=== PATIENT | female | born 1970 | race Caucasian/White ===

== ENCOUNTER 2019-09-24 17:49 | Inpatient (IN) | payer OTHER, SELFPAY ==
[2019-09-24] VITALS (7 sets, daily range): BP systolic 134–163; BP diastolic 76–108; PULSE 90–110; RESP 14–18; TEMP 36–36.7; O2SAT 96–99; BMI 28.1
[2019-09-24 19:09] LABS: Basophils # 0.1 10^3/uL (0.0-0.1); Basophils % 0.4 %; Eosinophils % 0.1 %; Hematocrit 46.4 % (37.0-47.0); Hemoglobin 14.2 g/dL (11.5-15.3); Lymphocytes # 1.3 10^3/uL (0.8-4.8); Mean Corpuscular HGB Conc 30.6 g/dL (30.0-36.0); Mean Corpuscular Hemoglobin 28.7 pg (28.0-34.0); Mean Corpuscular Volume 93.7 fL (81-99); Mean Platelet Volume 10.9 fL (7.4-10.4); Monocytes # 0.5 10^3/uL (0.2-0.9); Monocytes % 3.3 %; Neutrophils # 12.7 10^3/uL (1.8-7.7); Neutrophils % 86.9 %; Nucleated Red Blood Cells % 0 %; Platelet Count 250 10^3/cmm (130-400); Red Blood Count 4.95 10^6/uL (4.1-5.3); Red Cell Distribution Width 12.8 % (12.1-15.1); White Blood Count 14.6 10^3/uL (4.0-10.0)
[2019-09-24 19:24] LABS: Anion Gap 22.4 (5-19); Blood Urea Nitrogen 8 mg/dL (6-20); Carbon Dioxide 19 mmol/L (22-29); Chloride 100 mmol/L (98-107); Potassium 4.4 mmol/L (3.5-5.1); Sodium 137 mmol/L (136-145)
[2019-09-24 19:25] LABS: Alanine Aminotransferase 25 U/L (0-33); Albumin Level 4.7 g/dL (3.5-5.2); Alkaline Phosphatase 101 IU/L (35-105); Calcium 9.9 mg/dL (8.5-10.5); Globulin 3.6 g/dL (1.3-4.6); Glomerular Filtration Rate 131.7 mL/min (90-130); Glucose 248 mg/dL (65-115); Lipase 38 U/L (13-60); Osmolality Calculated 288 mOsm/kg (285-295); Total Bilirubin 0.4 mg/dL (0.15-1.2); Total Protein 8.3 g/dL (6.6-8.7)
--- NOTE | 2019-09-24 19:25 | USR_ITS ---
PROCEDURE INFORMATION: Exam: US Abdomen Limited, Right Upper Quadrant Exam date and time: 09/24/2019 8:23 PM Age: 49 years old Clinical indication: Abdominal pain; Epigastric; Additional info: Ruq pain TECHNIQUE: Imaging protocol: Real-time ultrasound of the abdomen with image documentation. Examination was focused on the right upper quadrant. COMPARISON: No relevant prior studies available. FINDINGS: Liver: There is hepatomegaly the liver span is 17 cm. Diffuse increased hepatic echogenicity is seen consistent with steatosis. Gallbladder: There is a shadowing gallstone in the gallbladder neck measuring 3.3 cm There is no gallbladder wall thickening. there is pericholecystic fluid. The gallbladder wall measures 2 mm. Positive Magana sign Common bile duct: Normal. No stones. No dilation. Pancreas: Visualized pancreas is unremarkable. Right kidney: Normal. No mass. No hydronephrosis. 12.2 cm x 3.9 cm x 4.8 cm US/US gall bladder [id number] IMPRESSION: 1. Hepatic steatosis and hepatomegaly 2.Cholelithiasis , pericholecystic fluid, positive Magana 3. Otherwise negative examination
--- NOTE | 2019-09-24 19:26 | ED_ITS ---
Documented by User: COLLEEN Hardwick 09/24/19 19:28 HPI - Abdominal Pain General: Chief Complaint: Abdominal Pain Stated Complaint: R ABD PAIN Time Seen by Provider: 09/24/19 19:22 History of Present Illness: HPI narrative: Patient complains about right upper quadrant pain started probably about 10:00 today worse after lunch has not relented did have nausea with it. Patient is diabetic as his sugars been running high last couple weeks denies any other problems presently patient has had a HIDA scan that was negative from past MD elicited complaint: abdominal pain Onset (ago): hour(s) Pain Consistency: constant Location: RUQ Quality: stabbing and aching Radiation: none Migration to: other (Radiates to the back and right upper shoulder) Exacerbating factors: nothing Relieving factors: nothing Context: history of similar episodes Associated Symptoms: Reports nausea; Denies chills and fever(s) Review of Systems Const: Denies: fever(s), chills or body aches Eyes: Denies: change in vision or blurry vision ENMT: Denies: throat pain or nasal congestion Card: Denies: chest pain or dyspnea on exertion Resp: Denies: dyspnea, productive cough or non-productive cough GI: Reports: abdominal pain and nausea Musc: Denies: extremity pain Skin/Breast: Denies: rash Neuro: Denies: headache(s) Psych: Denies: anxiety or depression Ilya/Lymph: Denies: easy bruising PFSH ED PFSH: Social History Smoking and tobacco status: never smoked Physical Exam Const: COMMON NORMALS: no acute distress, average body habitus and patient oriented x3 HENMT: COMMON NORMALS: normocephalic HEAD & SCALP: normal to inspection and normocephalic FACE & SINUS: normal facial exam Eye: COMMON NORMALS: conjunctivae normal GENERAL EYE: appearance normal, both eyes and all related structures CONJUNCTIVA: Yes conjunctivae normal Neck/C-Spine: COMMON NORMALS: no JVD Chest: COMMONS NORMALS: normal inspection of the chest Resp: COMMON NORMALS: normal respiratory effort and clear to auscultation bilaterally AUSCULTATION: clear to auscultation bilaterally Cardio: COMMON NORMALS: no JVD, regular rate and regular rhythm RATE: regular rate RHYTHM: regular rhythm GI: INSPECTION: Yes normal to inspection AUSCULTATION: Yes Hypoactive bowel sounds present PALPATION: Yes Tenderness to palpation present (GI) Details: RUQ PERCUSSION: tympanic to percussion Extremity: COMMON NORMALS: normal to inspection and full ROM Neuro: COMMON NORMALS: patient oriented x3 Course Vital Signs: Vital signs: Vital Signs Temperature 96.8 F L 09/24/19 17:55 Pulse Rate 105 H 09/24/19 21:16 Respiratory Rate 14 09/24/19 21:16 Blood Pressure 155/104 09/24/19 21:16 Pulse Oximetry 96 09/24/19 21:16 MDM - Abdominal Pain Lab Data: Labs: Lab Results 09/24/19 09/24/19 09/24/19 Range/Units 18:58 18:58 20:47 WBC 14.6 H (4.0-10.0) 10^3/ uL RBC 4.95 (4.1-5.3) 10^6/u L Hgb 14.2 (11.5-15.3) g/dL Hct 46.4 (37.0-47.0) % MCV 93.7 (81-99) fL MCH 28.7 (28.0-34.0) pg MCHC 30.6 (30.0-36.0) g/dL RDW 12.8 (12.1-15.1) % Plt Count 250 (130-400) 10^3/c mm MPV 10.9 H (7.4-10.4) fL Neut % (Auto) 86.9 % Lymph % (Auto) 9.0 % Hinds % (Auto) 3.3 % Eos % (Auto) 0.1 % Baso % (Auto) 0.4 % Neut # (Auto) 12.7 H (1.8-7.7) 10^3/u L Lymph # (Auto) 1.3 (0.8-4.8) 10^3/u L Hinds # (Auto) 0.5 (0.2-0.9) 10^3/u L Eos # (Auto) 0.0 (0.0-0.8) 10^3/u L Baso # (Auto) 0.1 (0.0-0.1) 10^3/u L Nucleated RBC % (a uto) 0 % Nucleated RBCs # 0.0 /100WBC Sodium 137 (136-145) mmol/L Potassium 4.4 (3.5-5.1) mmol/L Chloride 100 (98-107) mmol/L Carbon Dioxide 19 L (22-29) mmol/L Anion Gap 22.4 H (5-19) BUN 8 (6-20) mg/dL Creatinine 0.5 (0.5-0.9) mg/dL GFR Calculation 131.7 H (90-130) mL/min Glucose 248 H (65-115) mg/dL Calculated Osmolal ity 288 (285-295) mOsm/k g Calcium 9.9 (8.5-10.5) mg/dL Total Bilirubin 0.4 (0.15-1.2) mg/dL AST 45 H (0-32) U/L ALT 25 (0-33) U/L Alkaline Phosphata se 101 (35-105) IU/L Total Protein 8.3 (6.6-8.7) g/dL Albumin 4.7 (3.5-5.2) g/dL Globulin 3.6 (1.3-4.6) g/dL Lipase 38 (13-60) U/L Urine Color Yellow (Yellow) Urine Appearance Clear (CLEAR) Urine pH 7 (5-7) Ur Specific Gravit y 1.015 (1.005-1.030) Urine Protein Neg (Negative) Urine Glucose (UA) 4+ H (Normal) Urine Ketones 2+ H (Negative) Urine Blood Neg (Negative) Urine Nitrate Negative (Negative) Urine Bilirubin Neg (NEGATIVE) Urine Urobilinogen Norm (Negative) mg/dL Ur Leukocyte Amber ase Negative (Negative) Discharge Plan Discharge Condition: Good Prescriptions: No Action Multiple Vitamins Tablet 1 tab PO DAILY RF: 0 atorvastatin 10 mg tablet 10 mg PO BEDTIME RF: 0 Euthyrox 75 mcg tablet 75 mcg PO DAILY RF: 0 iron 325 mg (65 mg iron) Tablet 325 mg PO DAILY RF: 0 metformin 1,000 mg tablet 1,000 mg PO DAILY RF: 0 glipizide 5 mg tablet 5 mg PO DAILY RF: 0 Calcium 500 + D 500 mg(1,250mg) -400 unit Tablet 1 tab PO DAILY RF: 0 Sign Out Sign Out Data: Patient Sign Out occurred on 09/24/19 at 21:31. Patient's care was discussed, and care was transferred from to Tianna Medrano. Coding Level of Care Code ED Supervisor Statement Clerks for Chg Fwd Exam Comprehensive Documented by User: Tianna Medrano 09/24/19 21:38 HPI - Abdominal Pain General: Chief Complaint: Abdominal Pain Stated Complaint: R ABD PAIN Time Seen by Provider: 09/24/19 19:22 PFS ED PFSH: Social History Smoking and tobacco status: never smoked Course Vital Signs: Vital signs: Vital Signs Temperature 96.8 F L 09/24/19 17:55 Pulse Rate 105 H 09/24/19 21:16 Respiratory Rate 14 09/24/19 21:16 Blood Pressure 155/104 09/24/19 21:16 Pulse Oximetry 96 09/24/19 21:16 MDM - Abdominal Pain MDM Narrative: Medical decision making narrative: The patient was seen and evaluated by me. I agree with [place]'s assessment and plan. Patient has signs of cholecystitis secondary to pericholecystic fluid, elevated white count, continued right upper quadrant abdominal pain despite IV pain medication. The case was reviewed with Drs. Fischer and Jose R and they agreed to admit and consult on the patient respectively. Lab Data: Labs: Lab Results 09/24/19 09/24/19 09/24/19 Range/Units 18:58 18:58 20:47 WBC 14.6 H (4.0-10.0) 10^3/ uL RBC 4.95 (4.1-5.3) 10^6/u L Hgb 14.2 (11.5-15.3) g/dL Hct 46.4 (37.0-47.0) % MCV 93.7 (81-99) fL MCH 28.7 (28.0-34.0) pg MCHC 30.6 (30.0-36.0) g/dL RDW 12.8 (12.1-15.1) % Plt Count 250 (130-400) 10^3/c mm MPV 10.9 H (7.4-10.4) fL Neut % (Auto) 86.9 % Lymph % (Auto) 9.0 % Hinds % (Auto) 3.3 % Eos % (Auto) 0.1 % Baso % (Auto) 0.4 % Neut # (Auto) 12.7 H (1.8-7.7) 10^3/u L Lymph # (Auto) 1.3 (0.8-4.8) 10^3/u L Hinds # (Auto) 0.5 (0.2-0.9) 10^3/u L Eos # (Auto) 0.0 (0.0-0.8) 10^3/u L Baso # (Auto) 0.1 (0.0-0.1) 10^3/u L Nucleated RBC % (a uto) 0 % Nucleated RBCs # 0.0 /100WBC Sodium 137 (136-145) mmol/L Potassium 4.4 (3.5-5.1) mmol/L Chloride 100 (98-107) mmol/L Carbon Dioxide 19 L (22-29) mmol/L Anion Gap 22.4 H (5-19) BUN 8 (6-20) mg/dL Creatinine 0.5 (0.5-0.9) mg/dL GFR Calculation 131.7 H (90-130) mL/min Glucose 248 H (65-115) mg/dL Calculated Osmolal ity 288 (285-295) mOsm/k g Calcium 9.9 (8.5-10.5) mg/dL Total Bilirubin 0.4 (0.15-1.2) mg/dL AST 45 H (0-32) U/L ALT 25 (0-33) U/L Alkaline Phosphata se 101 (35-105) IU/L Total Protein 8.3 (6.6-8.7) g/dL Albumin 4.7 (3.5-5.2) g/dL Globulin 3.6 (1.3-4.6) g/dL Lipase 38 (13-60) U/L Urine Color Yellow (Yellow) Urine Appearance Clear (CLEAR) Urine pH 7 (5-7) Ur Specific Gravit y 1.015 (1.005-1.030) Urine Protein Neg (Negative) Urine Glucose (UA) 4+ H (Normal) Urine Ketones 2+ H (Negative) Urine Blood Neg (Negative) Urine Nitrate Negative (Negative) Urine Bilirubin Neg (NEGATIVE) Urine Urobilinogen Norm (Negative) mg/dL Ur Leukocyte Amber ase Negative (Negative) Discharge Plan Discharge Condition: Good Prescriptions: No Action Multiple Vitamins Tablet 1 tab PO DAILY RF: 0 atorvastatin 10 mg tablet 10 mg PO BEDTIME RF: 0 Euthyrox 75 mcg tablet 75 mcg PO DAILY RF: 0 iron 325 mg (65 mg iron) Tablet 325 mg PO DAILY RF: 0 metformin 1,000 mg tablet 1,000 mg PO DAILY RF: 0 glipizide 5 mg tablet 5 mg PO DAILY RF: 0 Calcium 500 + D 500 mg(1,250mg) -400 unit Tablet 1 tab PO DAILY RF: 0 Sign Out Sign Out Data: Patient Sign Out occurred on 09/24/19 at 21:31. Patient's care was discussed, and care was transferred from to Tianna Medrano. Coding Level of Care Code ED Supervisor Statement Clerks for Jillian Fwsmith Exam Comprehensive
[2019-09-24 19:34] LABS: Aspartate Amino Transferase 45 U/L (0-32)
[2019-09-24] MEDS: morphine 4 mg/mL SDV 1 mL IVP (20:17)
[2019-09-24] MEDS: sodium chloride 0.9% 1,000 ML 999 ML IV (20:17)
[2019-09-24] MEDS: ondansetron 2 mg/ML SDV 2 mL 4 MG IVP (20:17)
[2019-09-24 21:14] LABS: Add Urine Microscopic? NO
[2019-09-24] MEDS: piperacillin-tazobactam 3.375 GM in sodium chloride 0.9% (plus) 50 ML IV (21:14)
[2019-09-24 21:16] LABS: Bilirubin Urine Neg (NEGATIVE); Blood Urine Neg (Negative); Glucose Urine UA 4+ (Normal); Ketones Urine 2+ (Negative); Leukocyte Esterase Urine Negative (Negative); Nitrate Urine Negative (Negative); Protein Urine Neg (Negative); Specific Gravity, Urine 1.015 (1.005-1.030); Urine Appearance Clear (CLEAR); Urine Color Yellow (Yellow); Urobilinogen Urine Norm (Negative); pH Urine 7 (5-7)
--- NOTE | 2019-09-24 21:38 | PM.HP ---
Providers/Chief Complaint Chief Complaint: R ABD PAIN History of Present Illness Layne Woods is a 49 year old female with no significant past medical history coming in today with chief complaint of right upper quadrant pain. Patient is stating that she has been feeling bloated and full for last couple of weeks, few years back she had a HIDA scan which showed thickening of gallbladder which was done due to abdominal pain and early satiety, she attributed her symptoms today to taking multivitamins but after eating rice and chicken started experiencing right upper quadrant pain within 20 minutes associated with nausea and vomiting, she has had 3 episodes of bilious vomiting. she did not notice any fever, chest pain, palpitations, dysuria. She gets diarrhea after taking metformin every day. Diagnostics in the ER revealed acute cholecystitis due to cholelithiasis without biliary dilation She was septic Was given Zosyn and fluid in the ER At the time of my interview she was hemodynamically stable except sinus tachycardia heart rate 107 Dr. Odell has been notified by the ER Review of Systems Const: Reports: chills and body aches; Denies: fever(s) Eyes: Denies: change in vision ENMT: Denies: throat pain Card: Reports: edema; Denies: chest pain Resp: Denies: dyspnea GI: Reports: abdominal pain, vomiting, early satiety and diarrhea; Denies: hematemesis, coffee ground emesis, dysphagia or heartburn : Reports: flank pain; Denies: difficulty voiding Musc: Denies: neck pain Skin/Breast: Denies: rash Neuro: Denies: headache(s) Psych: Denies: anxiety Endo: Denies: polyuria Ilya/Lymph: Denies: easy bruising All/Imm: Denies: urticaria Medications/Allergies Home Medications Medication Instructions Recorded Confirmed Last Taken Type atorvastatin 10 mg PO BEDTIME 09/24/19 09/24/19 Unknown History calcium carbonate-vitamin D3 1 tab PO DAILY 09/24/19 09/24/19 09/24/19 History [Calcium 500 + D] glipizide 5 mg PO DAILY 09/24/19 09/24/19 09/24/19 History iron 325 mg PO DAILY 09/24/19 09/24/19 09/24/19 History levothyroxine [Euthyrox] 75 mcg PO DAILY 09/24/19 09/24/19 09/24/19 History metformin 1,000 mg PO DAILY 09/24/19 09/24/19 09/24/19 History multivitamin [Multiple Vitamins] 1 tab PO DAILY 09/24/19 09/24/19 09/24/19 History PFSH Acute PFSH: Medical History Hypothyroidism Overweight (BMI 25.0-29.9) Type 2 diabetes mellitus Surgical History H/O lumpectomy Family History Denies family history of Diabetes Clotting disorder Dementia Lung disease Hypertension Social History Smoking and tobacco status: never smoked Alcohol intake: never Substance/Drug Use: never Household members: family Housing: House 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 Reproductive History: : 4 Vitals/I&O/Wt Last Vital Signs Temp 96.8 F L 09/24/19 17:55 Pulse 105 H 09/24/19 21:16 Resp 14 09/24/19 21:16 BP 155/104 09/24/19 21:16 Pulse Ox 96 09/24/19 21:16 Weight last 48 hrs Weight 69.853 kg Physical Exam Narrative: EXAM NARRATIVE: Head to toe examination Patient was sitting comfortably in her bed without any active discomfort Hemodynamically stable EOMI, PERRLA Awake alert oriented x3 GCS 15 Skin does not show any sign ischemia gangrene ulcer S1, S2 sinus tachycardia no signs of heart failure Abdomen soft, mild tenderness to deep palpation around right upper quadrant area, Magana's sign positive, bowel sounds sluggish Lungs are clear to auscultation without adventitious sounds No digital clubbing Appropriate mood and affect Pertinent negatives No active signs of peritonitis or perforation Data : 09/24/19 18:58 09/24/19 18:58 A&P Assessment and plan (1) Cholecystitis, acute with cholelithiasis: Status: Acute (2) Sepsis: Status: Acute Additional A&P Information Acute cholecystitis due to cholelithiasis No biliary dilation N.p.o. Zosyn antibiotic Maintenance fluid resuscitation Analgesic control with morphine Dr. Odell has been notified No signs of jaundice on clinical exam, If her clinical progress remains stable, she might need outpatient elective cholecystectomy in 2-4 weeks, will follow up with general surgery's recommendation Sepsis due to cholecystitis Sepsis criteria met with tachycardia and leukocytosis Will check lactic acid I will keep her on maintenance fluid D5 half-normal saline and Zosyn antibiotics Blood culture to be obtained Type 2 diabetes: Hold metformin Hypothyroidism: Hold levothyroxine at this point DVT prophylaxis: SCDs I would avoid using anticoagulation in case she needs surgery N.p.o. Full code Attestations Medical Necessity Statement*: Anticipating stay in the hospital course more than 2 midnights currently need antibiotic and fluids because of sepsis due to cholecystitis, general surgery to evaluate the patient in the morning Time Spent in Patient Care: 50 Coding Level of Care Code Acute Drum Reel Cutter for Jillian Ann Diagnoses Cholecystitis, acute with cholelithiasis K80.00 Sepsis A41.9
[2019-09-25] VITALS (17 sets, daily range): BP systolic 103–163; BP diastolic 64–97; PULSE 65–105; RESP 16–20; TEMP 36.6–37.1; O2SAT 92–99
[2019-09-25] MEDS: sodium chloride 0.9% 1,000 ML 75 ML IV ×2 (00:26→13:12)
[2019-09-25] MEDS: piperacillin-tazobactam 3.375 GM in sodium chloride 0.9% (plus) 50 ML IV ×3 (04:26→20:21)
[2019-09-25 05:07] LABS: Glucose Point of Care 133 mg/dL (70-110)
--- NOTE | 2019-09-25 05:29 | P.CONIM_ITS ---
Providers/Reason For Consult Consulting Physican/Specialty*: Endy Odell MD Reason for Consult*: Acute calculus cholecystitis Attending Physician: Iesha Fischer MD History of Present Illness History of Present Illness Chief Complaint: My tummy hurts History of present illness: Layne Woods is a pleasant 49 year old female presents to the emergency department with worsening right upper quadrant abdominal pain not necessarily referred and nothing seems to make it better except for some pain medications and usually greasy food makes it worse, patient denies any history of fever or chills, she does report history of nausea and vomiting, she does not recall any greasy diet yesterday as she did have some rice and chicken and generally she tries to avoid greasy food, also she denies history of jaundice, she is diabetic and has been on metformin which make her bowels loose, as her pain got worse came to the ER and further evaluation showed leukocytosis and an ultrasound that showed: IMPRESSION: 1. Hepatic steatosis and hepatomegaly 2.Cholelithiasis , pericholecystic fluid, positive Magana 3. Otherwise negative examination Patient was admitted on the hospitalist service and general surgery was consulted for further evaluation potential intervention Review of Systems General: Reports: 10 or more systems reviewed and unremarkable except in HPI and below Meds/Allergies Home Medications and Allergies Home Medications Medication Instructions Recorded Confirmed Last Taken Type atorvastatin 10 mg PO BEDTIME 09/24/19 09/24/19 Unknown History calcium carbonate-vitamin D3 1 tab PO DAILY 09/24/19 09/24/19 09/24/19 History [Calcium 500 + D] glipizide 5 mg PO DAILY 09/24/19 09/24/19 09/24/19 History iron 325 mg PO DAILY 09/24/19 09/24/19 09/24/19 History levothyroxine [Euthyrox] 75 mcg PO DAILY 09/24/19 09/24/19 09/24/19 History metformin 1,000 mg PO BID 09/24/19 09/24/19 09/24/19 History multivitamin [Multiple Vitamins] 1 tab PO DAILY 09/24/19 09/24/19 09/24/19 History Allergies Allergy/AdvReac Type Severity Reaction Status Date / Time No Known Allergies Allergy Verified 09/25/19 05:53 Current Medications Current Medications Generic Name Dose Route Start Last Admin Trade Name Freq PRN Reason Stop Dose Admin Piperacillin Sod/Tazobactam 50 mls @ 12.5 mls/hr 09/25/19 04:00 09/25/19 04:26 Sod 3.375 gm/ Sodium Chloride IV 12.5 mls/hr Q8H BRENDA Administration Protocol As Directed Sodium Chloride 1,000 mls @ 75 mls/hr 09/25/19 00:15 09/25/19 00:26 Sodium Chloride 0.9% IV 75 mls/hr .[id number] BRENDA Administration Morphine Sulfate 4 mg 09/24/19 19:25 09/24/19 20:17 Morphine IVP 4 mg Q5M PRN Administration SEVERE PAIN PFSH Acute PFSH: Medical History Hypothyroidism Overweight (BMI 25.0-29.9) Type 2 diabetes mellitus Surgical History H/O lumpectomy Family History Denies family history of Diabetes Clotting disorder Dementia Lung disease Hypertension Social History Smoking and tobacco status: never smoked Alcohol intake: never Substance/Drug Use: never Household members: family Housing: House 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 Reproductive History: : 4 Vitals/I&O/Wt Last Vital Signs Temp 98.8 F 09/25/19 04:00 Pulse 99 09/25/19 04:00 Resp 18 09/25/19 04:00 BP 103/64 09/25/19 04:00 Pulse Ox 94 09/25/19 04:00 09/24/19 09/24/19 09/25/19 14:59 22:59 06:59 Output Total 310 / 310 Balance -310 / -310 Weight last 48 hrs Weight 154 lb Physical Exam Narrative: EXAM NARRATIVE: Patient is conscious alert oriented X3 BMI 28 Head and neck examination PERRLA no masses no cervical lymphadenopathy no jaundice Cardiac examination audible S1-S2 no murmurs no gallops no arrhythmias Chest is clear bilateral,abscence of Rhonchi or wheezes,no surgical emphysema Abdomen right upper quad tenderess nondistended soft no organomegaly guarding or rigidity/no signs of peritonitis Extremities no cyanosis no clubbing no edema Data Micro: Micro: Microbiology 09/24/19 23:13 Blood Culture - Pr eliminary Blood [facility] 09/24/19 23:21 Blood Culture - Pr eliminary Blood [facility] A&P Assessment and plan (1) Cholecystitis, acute with cholelithiasis: Plan of care; After thorough history physical examination and reviewing the chart ,I counseled the patient for laparoscopic cholecystectomy possible open, indications risks including but not limited injury to the common bile duct and other viscera.benefits and alternatives all discussed with the patient, and she did agree to proceed. All questions have been answered and all concerns have been addressed to patient's satisfaction. Informed consent per chart Assurance and education All questions have been answered and all concerns have been addressed to patient's satisfaction. Status: Acute (2) Fatty liver: Low-fat diet Titer control of Hyperglycemia DM education Status: Acute Consult Attestations Medical Necessity Statement: Per hospitalist service Time Spent in Patient Care: (>than 50% of time spent in counselling and/or direct pt care on unit) . Coding Level of Care Code Acute Bsa Officer for Jillian Ann Diagnoses Cholecystitis, acute with cholelithiasis K80.00 Fatty liver K76.0
--- NOTE | 2019-09-25 06:00 | PC.NURSE ---
Shift summary. Patient rested well throughout the night without complaint of pain in her abd. Patient does have a headache this morning. This nurse discussed the headache with Dr. Odell. Doctor ordered Acetaminophen 650 Q6h PRN. This nurse rounded with Dr. Odell with surgery discussed. Patient is discussing her options with her and will report to Dr. Odell on her decision to do surgery today or wait for outpatient in 4-6 weeks.
[2019-09-25 06:03] LABS: Alanine Aminotransferase 19 U/L (0-33); Albumin Level 4.3 g/dL (3.5-5.2); Alkaline Phosphatase 90 IU/L (35-105); Anion Gap 15.9 (5-19); Aspartate Amino Transferase 32 U/L (0-32); Blood Urea Nitrogen 8 mg/dL (6-20); Carbon Dioxide 24 mmol/L (22-29); Chloride 105 mmol/L (98-107); Globulin 2.7 g/dL (1.3-4.6); Glomerular Filtration Rate 106.7 mL/min (90-130); Glucose 146 mg/dL (65-115); Osmolality Calculated 291 mOsm/kg (285-295); Potassium 3.9 mmol/L (3.5-5.1); Sodium 141 mmol/L (136-145); Total Bilirubin 0.5 mg/dL (0.15-1.2)
[2019-09-25] MEDS: acetaminophen 325 mg Tablet 650 MG PO ×2 (06:21→13:07)
[2019-09-25] MEDS: ondansetron 2 mg/ML SDV 2 mL 4 MG IVP (06:23)
[2019-09-25 06:48] LABS: Basophils % 0.3 %; Eosinophils # 0.1 10^3/uL (0.0-0.8); Eosinophils % 1.2 %; Hematocrit 38.9 % (37.0-47.0); Lymphocytes # 2.2 10^3/uL (0.8-4.8); Lymphocytes % 25.2 %; Mean Corpuscular HGB Conc 30.8 g/dL (30.0-36.0); Mean Corpuscular Hemoglobin 28.3 pg (28.0-34.0); Mean Corpuscular Volume 91.7 fL (81-99); Mean Platelet Volume 10.6 fL (7.4-10.4); Monocytes % 11.4 %; Neutrophils # 5.3 10^3/uL (1.8-7.7); Neutrophils % 61.6 %; Nucleated Red Blood Cells % 0 %; Platelet Count 244 10^3/cmm (130-400); Red Blood Count 4.24 10^6/uL (4.1-5.3); Red Cell Distribution Width 13.1 % (12.1-15.1); White Blood Count 8.6 10^3/uL (4.0-10.0)
[2019-09-25 10:41] LABS: Glucose Point of Care 164 mg/dL (70-110)
--- NOTE | 2019-09-25 12:26 | P.PN_ITS ---
Subjective Subjective: Interval history: Chart reviewed, NPO for laparoscopic cholecystecomy this afternoon. Hemodynamically stable. Patient seen and examined, sitting in chair by bedside, no apparent distress, reports decreased right upper quadrant discomfort, denies nausea. Surgery scheduled for approximately 1430 this afternoon. Medications: Reviewed: Yes Medication Review Details: Active Medications Generic Name Dose Route Start Last Admin Trade Name Freq PRN Reason Stop Dose Admin Acetaminophen 650 mg 09/25/19 05:57 09/25/19 06:21 Tylenol PO 650 mg Q6H PRN Administration MILD PAIN Piperacillin Sod/T azobactam 50 mls @ 12.5 mls /hr 09/25/19 04:00 09/25/19 04:26 Sod 3.375 gm/ So dium Chloride IV 12.5 mls/hr Q8H BRENDA Administration Protocol As Directed Sodium Chloride 1,000 mls @ 75 ml s/hr 09/25/19 00:15 09/25/19 00:26 Sodium Chloride 0.9% IV 75 mls/hr .[id number] BRENDA Administration Morphine Sulfate 4 mg 09/24/19 19:25 09/24/19 20:17 Morphine IVP 4 mg Q5M PRN Administration SEVERE PAIN Morphine Sulfate 4 mg 09/24/19 23:06 Morphine IVP Q4H PRN SEVERE PAIN Ondansetron HCl 4 mg 09/24/19 23:06 09/25/19 06:23 Zofran IVP 4 mg Q6H PRN Administration NAUSEA AND VOMITI NG No Known Allergies Allergy (Verified 09/25/19 05:53) Vitals/I&O/Wt Last Vital Signs Temp 98.7 F 09/25/19 10:59 Pulse 91 09/25/19 10:59 Resp 18 09/25/19 10:59 BP 109/72 09/25/19 10:59 Pulse Ox 96 09/25/19 10:59 09/24/19 09/25/19 09/25/19 22:59 06:59 14:59 Output Total 310 / 310 Balance -310 / -310 Weight last 48 hrs Weight 69.853 kg Physical Exam Const: COMMON NORMALS: no acute distress and patient oriented x3 GENERAL APPEARANCE: cooperative and comfortable ORIENTATION/CONSCIOUSNESS: Yes awake HENMT: COMMON NORMALS: normocephalic, atraumatic, hearing grossly normal bilaterally and moist oral mucous membranes HEAD & SCALP: normocephalic and atraumatic Eye: COMMON NORMALS: Equal, round and reactive pupils present, EOMs intact bilaterally and conjunctivae normal CONJUNCTIVA: Yes conjunctivae normal PUPIL: Yes Equal, round and reactive pupils present Neck/C-Spine: COMMON NORMALS: full ROM GENERAL: Yes normal visual inspection and Yes trachea midline Resp: COMMON NORMALS: normal respiratory effort, No retractions, No use of accessory muscles and clear to auscultation bilaterally EFFORT & INSPECTION: Yes able to speak in complete sentences, Yes symmetric chest movement and No tachypneic AUSCULTATION: clear to auscultation bilaterally Cardio: COMMON NORMALS: regular rate, regular rhythm, S1 normal heart sound present, S2 normal heart sound present and No murmurs present (Cardio) RATE: regular rate RHYTHM: regular rhythm HEART SOUNDS: S1 normal heart sound present and S2 normal heart sound present GI: COMMON NORMALS: Normal to inspection, nondistended, normoactive bowel sounds present and Soft to palpation PALPATION: Yes Soft to palpation, Yes Tenderness to palpation present (GI) Details: RUQ (Mild), No Guarding due to palpation present (GI), No Rigid due to palpation and No Rebound tenderness present Extremity: COMMON NORMALS: normal to inspection, full ROM, no clubbing, cyanosis or edema and no pedal edema Neuro: COMMON NORMALS: patient oriented x3, moves all extremities, no focal motor deficits, no sensory deficits noted and gait normal Psych: COMMON NORMALS: mental status grossly normal, Normal thought process present, cooperative, normal affect and speech normal SPEECH: Yes normal speech THOUGHT PROCESS: Normal thought process present Skin: COMMON NORMALS: no rashes or lesions noted, no jaundice, no petechiae and no mottling GENERAL SKIN EXAM: no rashes or lesions noted Data : 09/25/19 06:26 09/25/19 04:58 Micro: Microbiology 09/24/19 23:13 Blood Culture - Preliminary Blood SPECIMEN COLLECTED 09/24/19 23:21 Blood Culture - Preliminary Blood SPECIMEN COLLECTED A&P Assessment and plan (1) Cholecystitis, acute with cholelithiasis: -noted hepatic steatosis and hepatomegaly, cholelithiasis, pericholecystic fluid on gallbladder ultrasound. Positive Magana sign -Currently NPO in anticipation of laparoscopic cholecystectomy this afternoon -Surgery consult by Dr. Giurguis appreciated -Previously noted leukocytosis now resolved -Noted normal LFTs, lipase (38) -pain control, antiemetics as needed -VSS, continue to monitor -continue Zosyn Status: Acute Qualifiers: Biliary obstruction: without biliary obstruction Qualified Code(s): K80.00 - Calculus of gallbladder with acute cholecystitis without obstruction (2) Sepsis: -Sepsis criteria as evidenced by leukocytosis, tachycardia both of which have resolved -Secondary to acute cholecystitis Status: Acute Qualifiers: Sepsis acute organ dysfunction status: without acute organ dysfunction Sepsis type: sepsis due to unspecified organism Qualified Code(s): A41.9 - Sepsis, unspecified organism (3) Fatty liver: -noted on imaging Status: Chronic (4) Type 2 diabetes mellitus: -Accu-Cheks, hypoglycemia precautions, ISS -A1c-11.8; poorly controlled -Hold metformin, glipizide -Currently NPO Status: Chronic Qualifiers: Diabetes mellitus complication status: without complication Diabetes mellitus long term care social worker insulin use: without long term care social worker use Qualified Code(s): E11.9 - Type 2 diabetes mellitus without complications (5) Hypothyroidism: -continue levothyroxine Status: Chronic Qualifiers: Hypothyroidism type: unspecified Qualified Code(s): E03.9 - Hypothyroidism, unspecified Additional A&P Information -DVT ppx with SCDs, no AC due to pending surgery -Dispo: home -Code status: FULL code Attestations Medical Necessity Statement*: Patient requires hospitalization for management of acute cholecystitis, pending laparoscopic cholecystectomy. Time Spent in Patient Care: 16 - 35 minutes (>than 50% of time spent in counselling and/or direct pt care on unit) . Coding Level of Care Code Acute Hitting Coach for Chg Fwd Exam Comprehensive Diagnoses Cholecystitis, acute with cholelithiasis K80.00 Biliary obstruction: without biliary obstruction Sepsis A41.9 Sepsis acute organ dysfunction status: without acute organ dysfunction Sepsis type: sepsis due to unspecified organism Fatty liver K76.0 Type 2 diabetes mellitus E11.9 Diabetes mellitus complication status: without complication Diabetes mellitus long term care social worker insulin use: without long term care social worker use Hypothyroidism E03.9 Hypothyroidism type: unspecified
--- NOTE | 2019-09-25 14:09 | PC.NURSE ---
PT IS OFF UNIT TO OR FOR SURGERY
[2019-09-25 14:20] LABS: Estmated Average Glucose 278; Hemoglobin A1C 11.3 % (4.0-6.0)
[2019-09-25] MEDS: sodium chloride 0.9% 1,000 ML 30 ML IV (14:45)
--- NOTE | 2019-09-25 15:14 | ANES.PREANE2 ---
Pre-Anesthetic Assessment Pre-Anesthetic Assessment: Height/Weight: Height 1.57 m Weight 69.853 kg Temp Pulse Resp BP Pulse Ox 98.6 F 88 16 117/79 96 09/25/19 14:25 09/25/19 14:25 09/25/19 14:25 09/25/19 14:25 09/25/19 14:25 Preop Diagnosis: Acute calculus cholecystitis Proposed Procedure: Operation Date: 09/25/19 15:25 Proposed Procedures p Laparoscopic Cholecystectomy(Not Applicable) - Endy Odell MD Last intake: Intake Last Liquid Date 09/24/19 Last Liquid Time 14:00 Last Solid Date 09/24/19 Last Solid Time 12:30 Social: Social History: No alcohol and No tobacco Exam: Pre-Anes Outpt Exam: alert, oriented x 3, clear to auscultation bilaterally and regular rate & rhythm Airway: Submandibular: WNL Cervical ROM: WNL MP: 2 Dentition: Partials (upper and lower) and Other (poor dentation) History/ROS: No significant history except as noted Pulmonary: Pulmonary: None reported CV/HEM: CV/HEM: None reported : : None reported Hepatic: Hepatic: None reported GI: GI: GERD (occ) Metabolic: Metabolic: DM, Hyperlipidemia and Thyroid Musc/skel: Musc/skel: None reported Neuropsych: Neuropsych: None reported Anesthetic Plan: ASA status: 2 Anesthesia: Anesthesia Evaluation and General Risk of > 500 ml blood loss (7ml/kg in children): No Meds/Allergies Current Medications: Current Medications Generic Name Dose Route Start Last Admin Trade Name Freq PRN Reason Stop Dose Admin Acetaminophen 650 mg 09/25/19 05:57 09/25/19 13:07 Tylenol PO 650 mg Q6H PRN Administration MILD PAIN Piperacillin Sod/T azobactam 50 mls @ 12.5 mls /hr 09/25/19 04:00 09/25/19 13:09 Sod 3.375 gm/ So dium Chloride IV 12.5 mls/hr Q8H BRENDA Administration Protocol As Directed Sodium Chloride 1,000 mls @ 75 ml s/hr 09/25/19 00:15 09/25/19 13:12 Sodium Chloride 0.9% IV 75 mls/hr .[id number] BRENDA Administration Sodium Chloride 1,000 mls @ 30 ml s/hr 09/25/19 14:45 09/25/19 14:45 Sodium Chloride 0.9% IV 30 mls/hr .Q24H BRENDA Administration Morphine Sulfate 4 mg 09/24/19 19:25 09/24/19 20:17 Morphine IVP 4 mg Q5M PRN Administration SEVERE PAIN Ondansetron HCl 4 mg 09/24/19 23:06 09/25/19 06:23 Zofran IVP 4 mg Q6H PRN Administration NAUSEA AND VOMITI NG Additional Medication Information: Active Medications Generic Name Dose Route Start Last Admin Trade Name Freq PRN Reason Stop Dose Admin Acetaminophen 650 mg 09/25/19 05:57 09/25/19 06:21 Tylenol PO 650 mg Q6H PRN Administration MILD PAIN Piperacillin Sod/T azobactam 50 mls @ 12.5 mls /hr 09/25/19 04:00 09/25/19 04:26 Sod 3.375 gm/ So dium Chloride IV 12.5 mls/hr Q8H BRENDA Administration Protocol As Directed Sodium Chloride 1,000 mls @ 75 ml s/hr 09/25/19 00:15 09/25/19 00:26 Sodium Chloride 0.9% IV 75 mls/hr .[id number] BRENDA Administration Morphine Sulfate 4 mg 09/24/19 19:25 09/24/19 20:17 Morphine IVP 4 mg Q5M PRN Administration SEVERE PAIN Morphine Sulfate 4 mg 09/24/19 23:06 Morphine IVP Q4H PRN SEVERE PAIN Ondansetron HCl 4 mg 09/24/19 23:06 09/25/19 06:23 Zofran IVP 4 mg Q6H PRN Administration NAUSEA AND VOMITI NG No Known Allergies Allergy (Verified 09/25/19 05:53) PFSH Anesthesia PFSH: Medical History Hypothyroidism Overweight (BMI 25.0-29.9) Type 2 diabetes mellitus Surgical History H/O lumpectomy Family History Denies family history of Diabetes Clotting disorder Dementia Lung disease Hypertension Social History Smoking and tobacco status: never smoked Alcohol intake: never Substance/Drug Use: never Household members: family Housing: House 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 Reproductive History: : 4 Data Anesthesia CBC & Chem 7: 09/25/19 06:26 09/25/19 04:58 Other Labs: Laboratory Results - last 48 hr 09/24/19 09/24/19 09/24/19 18:58 18:58 20:47 WBC 14.6 H RBC 4.95 Hgb 14.2 Hct 46.4 MCV 93.7 MCH 28.7 MCHC 30.6 RDW 12.8 Plt Count 250 MPV 10.9 H Neut % (Auto) 86.9 Lymph % (Auto) 9.0 Rogers % (Auto) 3.3 Eos % (Auto) 0.1 Baso % (Auto) 0.4 Neut # (Auto) 12.7 H Lymph # (Auto) 1.3 Rogers # (Auto) 0.5 Eos # (Auto) 0.0 Baso # (Auto) 0.1 Nucleated RBC % (auto) 0 Nucleated RBCs # 0.0 Sodium 137 Potassium 4.4 Chloride 100 Carbon Dioxide 19 L Anion Gap 22.4 H BUN 8 Creatinine 0.5 GFR Calculation 131.7 H Glucose 248 H POC Glucose Estimat Average Glucose Hemoglobin A1c Calculated Osmolality 288 Lactic Acid (Sepsis) Calcium 9.9 Total Bilirubin 0.4 AST 45 H ALT 25 Alkaline Phosphatase 101 Total Protein 8.3 Albumin 4.7 Globulin 3.6 Lipase 38 Urine Color Yellow Urine Appearance Clear Urine pH 7 Ur Specific [place] 1.015 Urine Protein Neg Urine Glucose (UA) 4+ H Urine Ketones 2+ H Urine Blood Neg Urine Nitrate Negative Urine Bilirubin Neg Urine Urobilinogen Norm Ur Leukocyte Esterase Negative 09/24/19 09/25/19 09/25/19 23:21 04:58 05:03 WBC RBC Hgb Hct MCV MCH MCHC RDW Plt Count MPV Neut % (Auto) Lymph % (Auto) Rogers % (Auto) Eos % (Auto) Baso % (Auto) Neut # (Auto) Lymph # (Auto) Rogers # (Auto) Eos # (Auto) Baso # (Auto) Nucleated RBC % (auto) Nucleated RBCs # Sodium 141 Potassium 3.9 Chloride 105 Carbon Dioxide 24 Anion Gap 15.9 BUN 8 Creatinine 0.6 GFR Calculation 106.7 Glucose 146 H POC Glucose 133 Estimat Average Glucose Hemoglobin A1c Calculated Osmolality 291 Lactic Acid (Sepsis) 2.0 Calcium 9.0 Total Bilirubin 0.5 AST 32 ALT 19 Alkaline Phosphatase 90 Total Protein 7.0 Albumin 4.3 Globulin 2.7 Lipase Urine Color Urine Appearance Urine pH Ur Specific [place] Urine Protein Urine Glucose (UA) Urine Ketones Urine Blood Urine Nitrate Urine Bilirubin Urine Urobilinogen Ur Leukocyte Esterase 09/25/19 09/25/19 09/25/19 06:26 06:26 10:29 WBC 8.6 RBC 4.24 Hgb 12.0 Hct 38.9 MCV 91.7 MCH 28.3 MCHC 30.8 RDW 13.1 Plt Count 244 MPV 10.6 H Neut % (Auto) 61.6 Lymph % (Auto) 25.2 Rogers % (Auto) 11.4 Eos % (Auto) 1.2 Baso % (Auto) 0.3 Neut # (Auto) 5.3 Lymph # (Auto) 2.2 Rogers # (Auto) 1.0 H Eos # (Auto) 0.1 Baso # (Auto) 0.0 Nucleated RBC % (auto) 0 Nucleated RBCs # 0.0 Sodium Potassium Chloride Carbon Dioxide Anion Gap BUN Creatinine GFR Calculation Glucose POC Glucose 164 Estimat Average Glucose 278 Hemoglobin A1c 11.3 H Calculated Osmolality Lactic Acid (Sepsis) Calcium Total Bilirubin AST ALT Alkaline Phosphatase Total Protein Albumin Globulin Lipase Urine Color Urine Appearance Urine pH Ur Specific [place] Urine Protein Urine Glucose (UA) Urine Ketones Urine Blood Urine Nitrate Urine Bilirubin Urine Urobilinogen Ur Leukocyte Esterase Micro: Microbiology 09/24/19 23:13 Blood Culture - Preliminary Blood SPECIMEN COLLECTED 09/24/19 23:21 Blood Culture - Preliminary Blood SPECIMEN COLLECTED Cardiac Studies: No Data to Display
[2019-09-25] MEDS: scopolamine 1.5 Patch 1 PATCH TRANSDERMA (16:01)
[2019-09-25] MEDS: lidocaine 2% INJ 20 mL INJECTION ×2 (16:52→20:16)
--- NOTE | 2019-09-25 17:37 | PM.OP ---
Operative Report Date of procedure: September 25, 2019 Pre-op Diagnosis: Acute calculus cholecystitis Post-op diagnosis: same (Extensive adhesions and scarring towards the cystic duct and cystic artery) Procedure Done: Laparoscopic cholecystectomy and placement of large piece of Surgicel at the gallbladder fossa Specimens removed/disposition: Fluid aspirate from the gallbladder for cultures and sensitivity Gallbladder and contents Surgeon: Endy Odell Sugar Cane Farm Manager: Surgical Viri Cardona Circulating nurse Nathan Anesthesia: MAC (rustic fence builder is Begum and Eliezer) Estimated blood loss (mL): 25 IV fluids (mL): 800 Condition: stable Disposition: floor Brief History: This is a pleasant 49 years old female patient presented to the emergency department with worsening left upper quadrant abdominal pain and was found to have cholelithiasis, upon further evaluation, patient was found to have acute cholecystitis. Plan of care; After thorough history physical examination and reviewing the chart ,I counseled the patient for laparoscopic cholecystectomy possible open, indications risks including but not limited injury to the common bile duct and other viscera.benefits and alternatives all discussed with the patient, and she did agree to proceed. All questions have been answered and all concerns have been addressed to patient's satisfaction. Informed consent per chart Procedure: Patient was identified in the holding area and taken back to the operative suite, placed in supine position intubated by anesthesia . Time-out was done verifying the patient's name/date of /planned procedure and destination after the procedure, all were in agreement. SCDs confirmed to be functioning, preoperative antibiotics administered per protocol, and beta keisha protocol was confirmed. Patient was appropriately secured to the table, footboard was applied to the OR table, before prep and drape anesthesia was asked to tilt the table back and forth to make sure that the patient is appropriately secured and she was. Prep and drape of the abdomen was done under the usual sterile technique, followed by that periumblical skin incision,skin incision was done by a 15 blade knife, and stay sutures were applied to the fascia and Delgado trocar technique was used to enter the abdominal without injuring any abdominal viscera, started by low flow gas insufflation followed by a high flow, started with a 10 mm laparoscope and under direct vision there was no evidence of any injuries, the scope then switched to a 30? ,10 millimeter scope and under direct visualization 5 millimeter trocar was inserted in the epigastric region followed by two 5 mm trocars were inserted in the right upper quadrant that was done after injection of local lidocaine 2% at all incision sites. Gallbladder showed acute calculus cholecystitis with extensive edema &with adhesions Hepatomegaly likely due to fatty liver Patient was then positioned in the head up and tilted to the left,I noticed that the gallbladder is well inflamed and distended so I elected to aspirate about 20 cc and sent the aspirate for cultures and with aspiration helps a hold onto the gallbladder for countertraction, dissection started by taking adhesions down using [place] forceps with heat,Noticed to have inflammatory reaction and scar tissues towards the cystic duct and cystic artery,w meticulous dissection I was able to obtain the critical view of the cystic duct and cystic artery were seen connected to the gallbladder. Clips were applied on the cystic duct towards the common bile duct 1 towards the gallbladder then divided is in sharp scissors, 2 clips were then applied onto the cystic artery and 1 towards the gallbladder and divided by sharp scissors. Dissection was then carried along of the gallbladder from the gallbladder fossa using cautery as well as sharp dissection with heat energy. The gallbladder then was dissected out from the gallbladder fossa totally , cholecystectomy was then achieved and was placed in an Endo Catch bag and then retrieved from the Delgado trocar site under direct visualization using a 5 mm 30? scope through the epigastric trocar, specimen was then passed to the circulating nurse to go for permanent pathology,irrigation and hemostasis was done to the gallbladder fossa after hemostasis was secured, final survey laparoscopy was done that showed no injuries. Suction irrigation was obtained I elected to leave a large piece of Surgicel for completion hemostasis at the gallbladder fossa The periumbilical fascial defect was then closed using interrupted Vicryl sutures using a fascial closure device ;Josh Gonzalez under direct visualization Gas was allowed to deflate,Trocars were then taken out under direct vision there was no evidence of bleeding Specimen was passed to the circulating nurse for permanent pathology. No drains were placed and the periumbilical incision as well as all trocar sites were closed by by 4-0 Monocryl to approximate the skin edges of the periumbilical incision, dressing was applied in the form of Dermabond and the patient patient got extubated and was taken to recovery area in a stable condition. Count of sponges, needles and instruments were completed at the end of the procedure I was present for the whole entire procedure.
--- NOTE | 2019-09-25 18:12 | SUR.PHASEI ---
PT TO PACU SLEEPY WITH GOOD RESP EFFORT ABD SOFT WITH 4 SITES WITH DERMABOND PT AWAKES TO VOICE, PULLING MASK OFF, PT NODS YES TO PAIN QUESTIONS THEN BACK TO SNORING. 1810 PT NC SATS 935 pt would not leave mask in place , pt sleeps quietly with no s/s of pain.
[2019-09-25] MEDS: fentaNYL 50 mcg/mL INJ 2mL IVP ×2 (18:22→20:17)
--- NOTE | 2019-09-25 18:33 | SUR.PHASEI ---
pt resting quietly now, pt encouraged to deep breathe occasionally
--- NOTE | 2019-09-25 19:08 | SUR.PHASEI ---
1650 PT TO FLOOR PER CART , PT ALERT MOVES SELF TO BED BP 134/80, HR 85, RESP 20 SATS ON 3LNC 100%. PT ENCOURAGED TO COUGH AND DEEP BREATHE OCC.
[2019-09-25] MEDS: morphine 4 mg/mL SDV 1 mL IVP (20:21)
[2019-09-25 20:45] LABS: Glucose Point of Care 233 mg/dL (70-110)
[2019-09-26] MEDS: HYDROcodone-acetaminophen 5-325 mg Tablet 1 TAB PO ×2 (00:05→12:14)
[2019-09-26] MEDS: piperacillin-tazobactam 3.375 GM in sodium chloride 0.9% (plus) 50 ML IV ×2 (03:31→03:36)
[2019-09-26 03:34] VITALS: RESP 16
[2019-09-26] MEDS: morphine 4 mg/mL SDV 1 mL IVP ×2 (03:34→08:18)
[2019-09-26] MEDS: sodium chloride 0.9% 1,000 ML 75 ML IV (03:37)
[2019-09-26 03:56] VITALS: BP 115/78; PULSE 110; RESP 18; TEMP 36.6; O2SAT 92
[2019-09-26 04:01] LABS: Glucose Point of Care 186 mg/dL (70-110)
--- NOTE | 2019-09-26 06:38 | PM.PN ---
Subjective Subjective: Interval history: No acute events overnight Undergone uneventful laparoscopic cholecystectomy Vitals/I&O/Wt Last Vital Signs Temp 97.9 F 09/26/19 03:56 Pulse 110 H 09/26/19 03:56 Resp 18 09/26/19 03:56 BP 115/78 09/26/19 03:56 Pulse Ox 92 09/26/19 03:56 09/25/19 09/25/19 09/26/19 14:59 22:59 06:59 Intake Total 1007.5 / 1007.5 50 / 1057.5 1051.042 / 2108.542 Output Total 50 / 50 2049 / 2099 Balance 1007.5 / 1007.5 0 / 1007.5 -998.958 / 8.542 Weight last 48 hrs Weight 154 lb Physical Exam Narrative: EXAM NARRATIVE: Patient is conscious alert oriented X3 BMI 28 Head and neck examination PERRLA no masses no cervical lymphadenopathy no jaundice Abdomen nontender except at the incision sites nondistended soft no organomegaly guarding or rigidity/no signs of peritonitis Data : 09/25/19 06:26 09/25/19 04:58 Micro: Microbiology 09/24/19 23:13 Blood Culture - Preliminary Blood NEGATIVE TO DATE 09/24/19 23:21 Blood Culture - Preliminary Blood NEGATIVE TO DATE 09/25/19 16:52 Gram Stain - Final Gallbladder Fluid A&P Assessment and plan (1) Cholecystitis, acute with cholelithiasis: Advance diet as tolerated Wean off O2 From surgical standpoint of view if patient tolerates well p.o. can be discharged home today after clearance from Dr. Valdez Diabetes teaching and education Return to surgery office in 7 to 10 days Assurance and education All questions have been answered and all concerns have been addressed to patient's satisfaction. Status: Resolved Qualifiers: Biliary obstruction: without biliary obstruction Qualified Code(s): K80.00 - Calculus of gallbladder with acute cholecystitis without obstruction Attestations Medical Necessity Statement*: Per hospitalist service Time Spent in Patient Care: (>than 50% of time spent in counselling and/or direct pt care on unit). Coding Level of Care Code Acute Nail Making Machine Setter for [facility] Fw Diagnoses Cholecystitis, acute with cholelithiasis K80.00 Biliary obstruction: without biliary obstruction
[2019-09-26 07:33] VITALS: BP 107/72; PULSE 95; RESP 18; TEMP 36.8; O2SAT 96
--- NOTE | 2019-09-26 08:13 | PM.DCS ---
Discharge Providers Date of Admission: 09/24/19 21:26 Date of Discharge: September 26, 2019 Attending Provider at Admission: Iesha Fischer MD Attending Provider at Discharge: Rochelle Valdez MD Primary Care Provider: Dr. Vanessa Andrea Diagnoses at Discharge Discharge Diagnosis (1) Cholecystitis, acute with cholelithiasis: Status: Resolved Problem details: -noted hepatic steatosis and hepatomegaly, cholelithiasis, pericholecystic fluid on gallbladder ultrasound. Positive Magana sign -POD # 1 s/p laparoscopic cholecystectomy -Surgery consult by Dr. Case appreciated -Previously noted leukocytosis now resolved -Noted normal LFTs, lipase (38) -pain control, antiemetics as needed -VSS, continue to monitor -continue Zosyn Qualifiers: Biliary obstruction: without biliary obstruction Qualified Code(s): K80.00 - Calculus of gallbladder with acute cholecystitis without obstruction (2) Sepsis: Status: Resolved Problem details: -Sepsis criteria as evidenced by leukocytosis, tachycardia both of which have resolved -Secondary to acute cholecystitis Qualifiers: Sepsis type: sepsis due to unspecified organism Sepsis acute organ dysfunction status: without acute organ dysfunction Qualified Code(s): A41.9 - Sepsis, unspecified organism (3) Fatty liver: Status: Chronic Problem details: -noted on imaging (4) Hypothyroidism: Status: Chronic Problem details: -on levothyroxine Qualifiers: Hypothyroidism type: unspecified Qualified Code(s): E03.9 - Hypothyroidism, unspecified (5) Type 2 diabetes mellitus: Status: Chronic Problem details: -Accu-Cheks, hypoglycemia precautions, ISS -A1c-11.8; poorly controlled -resume metformin, glipizide on d/c -diabetes education provided Qualifiers: Diabetes mellitus joint terminal attack controller insulin use: without joint terminal attack controller use Diabetes mellitus complication status: without complication Qualified Code(s): E11.9 - Type 2 diabetes mellitus without complications Reason for Visit Reason for Visit: Reason For Visit: R ABD PAIN Hospital Course Hospital Course: Patient was admitted to the medical surgical floor, continued on IV fluid hydration and empiric IV antibiotics. Surgery was consulted due to acute cholecystitis and Dr. Odell performed a laparoscopic cholecystectomy which was uneventful. Patient has done well post-op, she is POD #1 today. She was noted to have poorly controlled [id number] diabetes with an A1c of 11.3, she has been on metformin 1000 mg twice daily and glipizide 5 mg once daily. I have increased her glipizide to 5 mg twice a day. I recommended consistently checking her blood sugar and keeping a log for review with her primary care provider to adjust her medications as needed. She admits that she has not been taking her oral antihyperglycemic agents consistently in part because she experiences diarrhea when taking metformin. Discussed that they are alternatives to taking metformin should she wish to consider this and she can follow-up on this discussion with her primary care provider. Counseled on need to continue appropriate hydration with water, start with small frequent meals throughout the day, preferably soft bland foods with gradual resumption of diabetic diet. Educated on need to monitor surgical sites to make sure they are healing appropriately and to seek medical attention immediately if noted fever/chils, drainage or redness around these areas. Discharge Summary: -Patient to follow up with primary care physician within 1 week -Patient to follow up with Dr. Case in 7-10 days for post-op follow up. Physical Exam Const: COMMON NORMALS: no acute distress and patient oriented x3 GENERAL APPEARANCE: cooperative NUTRITIONAL APPEARANCE: overweight ORIENTATION/CONSCIOUSNESS: Yes awake OTHER: -Ambulatory HENMT: COMMON NORMALS: normocephalic, atraumatic, hearing grossly normal bilaterally and moist oral mucous membranes HEAD & SCALP: normocephalic and atraumatic Eye: COMMON NORMALS: Equal, round and reactive pupils present, EOMs intact bilaterally and conjunctivae normal CONJUNCTIVA: Yes conjunctivae normal PUPIL: Yes Equal, round and reactive pupils present Neck/C-Spine: COMMON NORMALS: full ROM GENERAL: Yes normal visual inspection and Yes trachea midline Resp: COMMON NORMALS: normal respiratory effort, No retractions, No use of accessory muscles and clear to auscultation bilaterally EFFORT & INSPECTION: Yes able to speak in complete sentences, Yes symmetric chest movement and No tachypneic AUSCULTATION: clear to auscultation bilaterally Cardio: COMMON NORMALS: regular rate, regular rhythm, S1 normal heart sound present, S2 normal heart sound present and No murmurs present (Cardio) RATE: regular rate RHYTHM: regular rhythm HEART SOUNDS: S1 normal heart sound present and S2 normal heart sound present GI: COMMON NORMALS: Normal to inspection, nondistended, normoactive bowel sounds present and Soft to palpation INSPECTION: Yes normal to inspection (Laparoscopic incision sites-clean, no drainage, no hematoma) and Yes central obesity PALPATION: Yes Soft to palpation, Yes Tenderness to palpation present (GI) (Around incision sites), No Guarding due to palpation present (GI), No Rigid due to palpation and No Rebound tenderness present Extremity: COMMON NORMALS: normal to inspection, full ROM, no clubbing, cyanosis or edema and no pedal edema Neuro: COMMON NORMALS: patient oriented x3, moves all extremities, no focal motor deficits, no sensory deficits noted and gait normal Psych: COMMON NORMALS: mental status grossly normal, Normal thought process present, cooperative, normal affect and speech normal SPEECH: Yes normal speech THOUGHT PROCESS: Normal thought process present Skin: COMMON NORMALS: no rashes or lesions noted, no jaundice, no petechiae and no mottling GENERAL SKIN EXAM: no rashes or lesions noted Discharge Data Data Completed and Pending: Completed Studies During Hospitalization Category Date Time Status US gall bladder 7 [id number] Urgent Ultrasound 09/24/19 19:25 Completed Pending at discharge Category Date Time Status ES surgery / GI i mages Routine Exams 09/25/19 15:56 Taken Anaerobic Culture Routine Lab 09/25/19 16:52 Received Blood Culture Sta t Lab 09/24/19 23:13 Results Body Fluid Cultur e & GS Routine Lab 09/25/19 16:52 Results Pathology: Surgic al [PTH] Routine Pth 09/25/19 17:49 Ordered Labs from last 24 hours 09/26/19 09/25/19 09/25/19 03:55 20:41 10:29 POC Glucose 186 233 164 Estimat Average Gl ucose Hemoglobin A1c 09/25/19 06:26 POC Glucose Estimat Average Gl ucose 278 Hemoglobin A1c 11.3 H Vitals: Last Vital Signs Temp 98.2 F 09/26/19 07:33 Pulse 95 09/26/19 07:33 Resp 18 09/26/19 07:33 BP 107/72 09/26/19 07:33 Pulse Ox 96 09/26/19 07:33 Discharge Plan Discharge Patient Disposition: Home, Self-Care Condition: Stable Prescriptions: New hydrocodone-acetaminophen 5-325 mg tablet 1 tab PO Q8H PRN (Reason: pain, severe) Qty: 30 RF: 0 ondansetron HCl [Zofran] 4 mg tablet 4 mg PO Q8H PRN (Reason: nausea and vomiting) Qty: 20 RF: 0 Continued Multiple Vitamins Tablet 1 tab PO DAILY RF: 0 atorvastatin 10 mg tablet 10 mg PO BEDTIME RF: 0 Euthyrox 75 mcg tablet 75 mcg PO DAILY RF: 0 iron 325 mg (65 mg iron) Tablet 325 mg PO DAILY RF: 0 Calcium 500 + D 500 mg(1,250mg) -400 unit Tablet 1 tab PO DAILY RF: 0 metformin 1,000 mg tablet 1,000 mg PO BID 30 Days Qty: 60 RF: 0 Changed glipizide 5 mg tablet 5 mg PO BID 30 Days Qty: 60 RF: 0 Discharge Orders: Discharge Order (Routine); Ordered 09/26/19 Ordered By: Rochelle Valdez Referrals: Endy Odell MD [Physician] - 7-10 days (Post-op follow up, s/p laparoscopic cholecystectomy) Vanessa Andrea MD [Family Provider] - 4-7 days (Post hospital discharge follow up. Had laparoscopic cholecystectomy due to acute cholecystitis. Noted to be poorly controlled diabetic, A1c-11.4. Has been on metformin and glipizide. ) Discharge Diet: Diabetic Discharge Activity: Increase activity as tolerated Patient Instructions: Hydrocodone/Acetaminophen (By mouth), Laparoscopic Cholecystectomy (DC), Diabetes and Diet, Diabetic Hypoglycemia (GEN), Managing Diabetes During Sick Days (GEN), Meal Planning with the Plate Model (GEN) Activity Restrictions/Additional Instructions: -Please seek medical attention immediately if experiencing worsening abdominal pain, persistent nausea and vomiting, redness/drainage around surgical incision sites -Please continue to monitor blood glucose and keep a log for review with your primary care physician Discharge Attestations Time Spent in Discharge Care*: greater than 30 min Specific Discharge Activities: Specific discharge activities: educating patient, discussing with pcp/other providers, discussing with director case/social workers/dc planners, documenting/other paperwork and evaluating patient/reviewing data Status at Discharge: Cognitive status at discharge: cognitively intact, Behavioral status at discharge: cooperative, Functional status at discharge: independent ambulation Overall status at discharge: patient is progressing back to baseline Quality Metrics Clinical Quality Measures During this hospital stay, did patient experience: None Coding Level of Care Code Acute Senior Private Client Advisor for g Fwd Exam Comprehensive Diagnoses Cholecystitis, acute with cholelithiasis K80.00 Biliary obstruction: without biliary obstruction Sepsis A41.9 Sepsis type: sepsis due to unspecified organism Sepsis acute organ dysfunction status: without acute organ dysfunction Fatty liver K76.0 Hypothyroidism E03.9 Hypothyroidism type: unspecified Type 2 diabetes mellitus E11.9 Diabetes mellitus joint terminal attack controller insulin use: without skilled nursing use Diabetes mellitus complication status: without complication
[2019-09-26 08:18] VITALS: RESP 18; O2SAT 97
[2019-09-26 11:14] VITALS: BP 102/67; PULSE 91; RESP 18; O2SAT 96
--- NOTE | 2019-09-26 12:20 | PC.NURSE ---
PATIENT DOES NOT NOT WANT THE TELEMETRY CARDIAC MONITORING
[2019-09-26 14:11] VITALS: BP 102/67; PULSE 91; RESP 18; O2SAT 96
== END 2019-09-26 15:53 | disposition home or self-care (01) | DRG 854 ==
LOC: ER 21:31 → MEDSURG 21:49
PROVIDERS: Nurse Practitioner Family; Surgery; Admitting Provider Internal Medicine; Emergency Provider Emergency Medicine; Family Provider Family Medicine; Visit Provider Family Medicine
PROC: 0FT44ZZ Resection of Gallbladder, Percutaneous Endoscopic Approach (ICD-10-PCS; CPT 47562; principal; 2019-09-25 15:25)
DX: A41.9 Sepsis, unspecified organism (principal); K80.00 Calculus of gallbladder with acute cholecystitis without obstruction; E03.9 Hypothyroidism, unspecified; E11.9 Type 2 diabetes mellitus without complications; E66.3 Overweight; Z68.28 Body mass index [BMI] 28.0-28.9, adult; K76.0 Fatty (change of) liver, not elsewhere classified; R16.0 Hepatomegaly, not elsewhere classified; Z79.84 Long term (current) use of oral hypoglycemic drugs
CPT/HCPCS: 12345; 36415; 36416; 76705; 80053; 81003; 82962; 83036; 83605; 83690; 85025; 87040; 87070; 87075; 87077; 87186; 87205; 88304; 96365; 96375; 99283; G0378; J0131; J1200; J2001; J2270; J2405; J2543; J2704; J2710; J2765; J3010; J3490; J7030

== ENCOUNTER 2020-03-06 13:18 | Outpatient (CLI) | payer OTHER, SELFPAY ==
--- NOTE | 2020-03-06 13:24 | MM_ITS ---
WS: [id number] BILATERAL DIGITAL SCREENING MAMMOGRAM WITH CAD CLINICAL INFORMATION: SCREENING HISTORY: Screening mammogram. No current complaints. COMPARISON: TECHNIQUE: Bilateral CC and MLO views. FINDINGS: Fatty-replaced breasts bilaterally. No suspicious focal mass, asymmetry, calcifications, or enterprise mobility architect ural distortion. No evidence of malignancy. MM/[id number] IMPRESSION: BI-RADS: 1-Negative FOLLOW UP: 1 Year Follow-up Recommend return to annual screening mammography.
== END 2020-03-06 13:19 | disposition home or self-care (01) ==
LOC: RADSHAW 13:22
PROVIDERS: PCP Nurse Practitioner Family; Visit Provider Nurse Practitioner Family
DX: Z12.31 Encounter for screening mammogram for malignant neoplasm of breast (principal)
CPT/HCPCS: 77067